=== PATIENT | male | born 1955 | race Caucasian/White ===

== ENCOUNTER 2018-09-21 18:30 | Emergency (ER) | payer MEDICAID ==
[2018-09-21] MEDS ORDERED: Sodium Chloride 0.9% 1,000 ML IV ONE (19:04)
[2018-09-21] MEDS ORDERED: Sodium Chloride 0.9% 1,000 ML ONE (19:19)
[2018-09-21 19:29] LABS: BASO # 0.1 K/uL (0.0-0.2); BASO % 0.9 % (0.0-2.0); EOS % 0.1 % (0.0-4.0); HEMOGLOBIN 12.8 g/dL (12.0-18.0); LYMPH # 1.4 K/uL (1.0-4.3); LYMPH % 16.8 % (20.0-40.0); MEAN CELL VOLUME 90.1 fL (80.0-94.0); MEAN CORPUSCULAR HEMOGLOBIN 30.4 pg (27.0-31.0); MEAN CORPUSCULAR HGB CONC 33.8 g/dL (33.0-37.0); MEAN PLATELET VOLUME 7.7 fL (7.2-11.7); MONO # 0.6 K/uL (0.0-0.8); MONO % 7.1 % (0.0-10.0); NEUT # 6.4 K/uL (1.8-7.0); NEUT % 75.1 % (50.0-75.0); NRBC % 0.1 % (0.0-2.0); RBC 4.22 Mil/uL (4.40-5.90); RED CELL DISTRIBUTION WIDTH 14.3 % (11.5-14.5); WHITE BLOOD COUNT 8.6 K/uL (4.8-10.8)
--- NOTE | 2018-09-21 19:37 | C.PDOC ---
History Of Present Illness 63 year old male, with no significant past medical history, presents to the ED for evaluation of fever, chills, cough, congestion, sore throat and generalized body aches which had sudden onset last night. Patient states symptoms started while at work, and states he usually works 15 hours per day. Patient took Tylenol and Naproxen with minimal relief. He denies nausea, vomiting. Time Seen by Provider: 09/21/18 18:57 Chief Complaint (Nursing): Flu-like Symptoms History Per: Patient History/Exam Limitations: no limitations Onset/Duration Of Symptoms: Hrs, Sudden Onset Current Symptoms Are (Timing): Still Present Associated Symptoms: Fever, Chills, Sore Throat, Cough, Nasal Congestion. denies: Nausea, Vomiting Additional History Per: Patient Past Medical History Reviewed: Historical Data, Nursing Documentation, Vital Signs Vital Signs: Last Vital Signs Temp 98.3 F 09/21/18 18:34 Pulse 95 H 09/21/18 18:34 Resp 18 09/21/18 18:34 BP 115/75 09/21/18 18:34 Pulse Ox 96 09/21/18 18:34 - Medical History PMH: No Chronic Diseases Surgical History: No Surg Hx Family History: States: Unknown Family Hx - Social History Hx Tobacco Use: Yes Hx Alcohol Use: No Hx Substance Use: No - Immunization History Hx Tetanus Toxoid Vaccination: No Hx Influenza Vaccination: No Hx Pneumococcal Vaccination: No Review Of Systems Constitutional: Positive for: Fever, Chills ENT: Positive for: Nose Congestion, Throat Pain Respiratory: Positive for: Cough Gastrointestinal: Negative for: Nausea, Vomiting Musculoskeletal: Positive for: Other (generalized body aches ) Physical Exam - Physical Exam Appears: Non-toxic, No Acute Distress Skin: Normal Color, Warm, Dry Head: Atraumatic, Normacephalic Eye(s): bilateral: Normal Inspection Ear(s): Bilateral: Normal Nose: Normal, No Discharge Oral Mucosa: Moist Throat: Erythema, No Exudate Neck: Supple Lymphatic: No Adenopathy Chest: Symmetrical, No Deformity, No Tenderness Cardiovascular: Rhythm Regular, No Murmur Respiratory: Normal Breath Sounds, No Rales, No Rhonchi, No Wheezing Extremity: Normal ROM, Capillary Refill (less than 2 seconds ) Neurological/Psych: Oriented x3, Normal Speech, Normal Cognition ED Course And Treatment - Laboratory Results Result Diagrams: 09/21/18 19:25 09/21/18 19:25 Lab Interpretation: No Acute Changes O2 Sat by Pulse Oximetry: 96 (on RA) Pulse Ox Interpretation: Normal - Radiology CXR: Interpreted by Me CXR Interpretation: Yes: No Acute Disease Progress Note: Bloodwork, CXR, Rapid Strep test, Flu swab ordered and reviewed. Toradol IVP and IV Fluids given. Reevaluation Time: 20:21 Reassessment Condition: Improved (after IV fluids) Disposition Counseled Patient/Family Regarding: Studies Performed, Diagnosis, Need For Followup - Disposition Referrals: Taco Cox MD [Medical Doctor] - Disposition: HOME/ ROUTINE Disposition Time: 20:25 Condition: STABLE Instructions: Viral Upper Respiratory Infection, Adult (DC) Forms: [facility] (Telugu), Work Excuse - Clinical Impression Clinical Impression: Influenza-like illness
[2018-09-21 19:44] LABS: ALB/GLOB RATIO 1.5 (1.0-2.1); ALBUMIN 4.3 g/dL (3.5-5.0); ALT/SGPT 17 U/L (21-72); AST/SGOT 26 U/L (17-59); BLOOD UREA NITROGEN 13 mg/dL (9-20); GFR NON-AFRICAN AMERICAN > 60
[2018-09-21 20:10] LABS: INFLUENZA A B NEGATIVE FOR FLU A/B (NEGATIVE)
[2018-09-21 20:38] VITALS: BP 122/87; PULSE 81; RESP 20; TEMP 98; O2SAT 98
--- NOTE | 2018-09-22 10:44 | RAD ---
Date of service: 09/21/2018 HISTORY: SOB COMPARISON: Comparison is made with TECHNIQUE: 07/31/2013 FINDINGS: LUNGS: No evidence of new infiltrate or consolidation in the lungs. Hyperinflation of the lungs is again noted. PLEURA: No significant pleural effusion identified. No pneumothorax apparent. CARDIOVASCULAR: No aortic atherosclerotic calcification present. Normal cardiac size. No pulmonary vascular congestion. OSSEOUS STRUCTURES: No significant abnormalities. VISUALIZED UPPER ABDOMEN: Normal. OTHER FINDINGS: None. IMPRESSION: No evidence of pneumonia. Hyperinflation of the lungs suggestive of COPD.
== END 2018-09-21 20:38 | disposition home or self-care (01) ==
LOC: C.ER 18:30
DX: J11.1 Influenza due to unidentified influenza virus with other respiratory manifestations (principal); Z72.0 Tobacco use
CPT/HCPCS: 71046; 80053; 85025; 87070; 87430; 87804; 96361; 96374; 99284; J1885; J7030

== ENCOUNTER 2018-11-17 11:15 | Emergency (ER) | payer MEDICAID, OTHER ==
[2018-11-17 11:30] VITALS: BP 111/72; PULSE 72; RESP 20; TEMP 97.5; O2SAT 98
--- NOTE | 2018-11-17 11:50 | C.PDOC ---
History Of Present Illness 63 y/o tobacco-smoking male with no significant PMH presents to the ED c/o sinus congestion, chest congestion, cough, and runny nose x 3 days. Cough is productive of copious yellow sputum. One episode of chest tightness secondary to coughing yesterday that has since resolved. Pt had worsened rhinorrhea, which prompted ED visit today. No sick contacts or recent travel. Denies flu shot. Has not taken any medications for symptoms. Denies fever, chills, abdominal pain, N/V/D, urinary symptoms, weakness, numbness, paresthesias, SOB, chest pain, or any other associated symptoms. Time Seen by Provider: 11/17/18 11:35 Chief Complaint (Nursing): Cough, Cold, Congestion History Per: Patient History/Exam Limitations: no limitations Past Medical History Reviewed: Historical Data, Nursing Documentation, Vital Signs Vital Signs: Last Vital Signs Temp 97.5 F L 11/17/18 11:29 Pulse 72 11/17/18 11:29 Resp 20 11/17/18 11:29 BP 111/72 11/17/18 11:29 Pulse Ox 98 11/17/18 11:29 - Medical History PMH: No Chronic Diseases Family History: States: Unknown Family Hx - Social History Hx Tobacco Use: Yes Hx Alcohol Use: No Hx Substance Use: No - Immunization History Hx Tetanus Toxoid Vaccination: No Hx Influenza Vaccination: No Hx Pneumococcal Vaccination: No Review Of Systems Except As Marked, All Systems Reviewed And Found Negative. Constitutional: Negative for: Fever, Chills Eyes: Negative for: Vision Change ENT: Positive for: Nose Discharge, Nose Congestion. Negative for: Throat Pain, Throat Swelling Cardiovascular: Negative for: Chest Pain, Palpitations Respiratory: Positive for: Cough, Sputum. Negative for: Shortness of Breath Gastrointestinal: Negative for: Nausea, Vomiting, Abdominal Pain Genitourinary: Negative for: Dysuria, Frequency Musculoskeletal: Negative for: Neck Pain, Back Pain Skin: Negative for: Rash Neurological: Negative for: Weakness, Numbness, Headache, Dizziness Physical Exam - Physical Exam Appears: Well, Non-toxic, No Acute Distress Skin: Normal Color, Warm, Dry Head: Atraumatic, Normacephalic, No Tenderness Eye(s): bilateral: Normal Inspection, PERRL, EOMI Ear(s): Bilateral: Normal Nose: Normal, Other (clear rhinorrhea) Oral Mucosa: Moist Throat: Normal Neck: Normal, Normal ROM, Other (no meningeal signs) Lymphatic: Normal Exam Chest: Tenderness (generalized reproducible chest wall tenderness) Cardiovascular: Rhythm Regular Respiratory: Normal Breath Sounds Gastrointestinal/Abdominal: Soft, No Tenderness Back: No CVA Tenderness, No Vertebral Tenderness, No Decreased ROM Extremity: Normal ROM, Capillary Refill (<2s) Extremity: Bilateral: Atraumatic, Normal Color And Temperature, Normal ROM Pulses: Left Radial: Normal, Right Radial: Normal Neurological/Psych: Oriented x3, Normal Motor, Normal Sensation Gait: Steady ED Course And Treatment ECG: Viewed By Me ECG Rhythm: Sinus Rhythm ECG Interpretation: Normal Interpretation Of ECG: rate 68; NSR; Normal Intervals; No STEMI or other signs of acute ischemia Rate From EC O2 Sat by Pulse Oximetry: 98 - Other Rad CXR X-Ray: Viewed By Me, Read By Radiologist Interpretation: HISTORY: rule out pneumonia. COMPARISON: Chest x-ray performed 09/21/18. TECHNIQUE: Chest PA and lateral. FINDINGS: LUNGS: Right greater than left apical pleural thickening and granulomatous changes. Hyperinflation may be seen in the setting of COPD. Increased lucencies especially within the bilateral upper lung machuca compatible with underlying emphysema. Please note that chest x-ray has limited sensitivity for the detection of pulmonary masses. PLEURA: No significant pleural effusion identified. No definite pneumothorax . CARDIOVASCULAR: Heart size appears within normal limits. Dense atherosclerotic calcifications of the aorta. OSSEOUS STRUCTURES: Degenerative changes of the spine. VISUALIZED UPPER A BDOMEN: Unremarkable. OTHER FINDINGS: None. IMPRESSION: Right greater than left apical thickening and granulomatous changes. COPD/emphysema. Medical Decision Making Medical Decision Making: Initial Plan: * Rapid flu * Rapid strep * CXR On initial exam, patient well-appearing in no acute distress. Pt speaking in full sentences without difficulty. Resting comfortably in stretcher with no complaints of pain. EKG performed in triage secondary to complaint of chest tightness, which has been resolved since yesterday. Reviewed by ED attending Dr. Doe. Shows rate 68, NSR, no signs of ischemia. Rapid Flu: negative Rapid Strep: negative CXR significant for COPD and granulomatous changes; negative for any active disease Will give Zpak secondary to smoking history, first 500mg dose given here. Advised to followup with primary doctor within 2 days. Pt states he will followup with clinic. Diagnostic testing results and plan of care discussed with patient. Strict instructions given regarding prescription use, importance of followup, and signs/symptoms to return to ER including fever, chills, chest pain, SOB, or any other new/worsening symptoms. Pt verbalized understanding of discussion. Patient is A&Ox3, ambulating with steady gait, with vital signs stable for discharge. Disposition - Disposition Referrals: [facility] [Outside] Disposition: HOME/ ROUTINE Disposition Time: 12:45 Condition: IMPROVED Additional Instructions: Azithromycin once daily for 4 days starting tomorrow Tessalon perles every 8 hours as needed for cough Inhaler every 6 hours as needed for cough Followup with primary doctor within 2 days Return to ER with any new/worsening symptoms Prescriptions: Albuterol Sulfate [Ventolin Hfa] 2 puff IH Q6H PRN #60 puff PRN Reason: Cough Azithromycin 250 mg PO DAILY #4 tablet Benzonatate [Tessalon Perle] 100 mg PO Q8H PRN #15 capsule PRN Reason: Cough Instructions: Acute Bronchitis Forms: [facility] Ivorian, [facility] (Ivorian), Work Excuse - Clinical Impression Clinical Impression: Lower resp. tract infection
--- NOTE | 2018-11-17 12:35 | RAD ---
HISTORY: rule out pneumonia COMPARISON: Chest x-ray performed 09/21/18 TECHNIQUE: Chest PA and lateral FINDINGS: LUNGS: Right greater than left apical pleural thickening and granulomatous changes. Hyperinflation may be seen in the setting of COPD. Increased lucencies especially within the bilateral upper lung machuca compatible with underlying emphysema. Please note that chest x-ray has limited sensitivity for the detection of pulmonary masses. PLEURA: No significant pleural effusion identified. No definite pneumothorax . CARDIOVASCULAR: Heart size appears within normal limits. Dense atherosclerotic calcifications of the aorta. OSSEOUS STRUCTURES: Degenerative changes of the spine. VISUALIZED UPPER ABDOMEN: Unremarkable. OTHER FINDINGS: None. IMPRESSION: Right greater than left apical thickening and granulomatous changes. COPD/emphysema.
[2018-11-17 12:40] LABS: INFLUENZA A B NEGATIVE FOR FLU A/B (NEGATIVE)
--- NOTE | 2018-11-19 18:44 | CARD ---
APPROVED REPORT Date of service: 11/17/2018 EKG Measurement Heart [id number] <Conclusion> Normal sinus rhythm Normal ECG
== END 2018-11-17 12:58 | disposition home or self-care (01) ==
LOC: C.ER 11:15
DX: J22 Unspecified acute lower respiratory infection (principal); Z72.0 Tobacco use